=== PATIENT | female | born 1940 | race Caucasian/White ===

== ENCOUNTER 2018-04-19 10:35 | Outpatient (CLI) | payer MEDICARE ==
--- NOTE | 2018-04-19 11:42 | RAD ---
PA AND LATERAL CHEST: HISTORY: Dyspnea. COMPARISON: 07/20/17 study. FINDINGS: Heart size is enlarged. Chronic lung changes are seen. Postoperative changes of the thoracolumbar s pine and both shoulders again noted. IMPRESSION: 1. Cardiomegaly with chronic lung change. Stable chest. 2. Hiatal hernia. POS: JACK
== END 2018-04-19 10:36 | disposition home or self-care (01) ==
LOC: RAD 10:35
PROVIDERS: ATTEND Internal Medicine Pulmonary Disease
DX: K44.9 Diaphragmatic hernia without obstruction or gangrene (principal); I51.7 Cardiomegaly; J98.4 Other disorders of lung
CPT/HCPCS: 71046

== ENCOUNTER 2024-08-10 10:52 | Outpatient (CLI) | payer MEDICARE | END 2024-08-10 10:53 | disposition home or self-care (01) | LOC: RAD 10:52 | PROVIDERS: ATTEND Internal Medicine | DX: R06.00 Dyspnea, unspecified (principal); K44.9 Diaphragmatic hernia without obstruction or gangrene | CPT/HCPCS: 71046 ==